=== PATIENT | male | born 1950 | race Caucasian/White ===

== ENCOUNTER 2022-01-23 15:01 | Outpatient (CLI) | payer MEDICARE, OTHER, SELFPAY ==
[2022-01-23 16:32] LABS: Absolute Lymphocyte Count 1.64 X10^3/uL (0.83-4.51); Absolute Neutrophil Count 7.8 X10^3/uL (2.0-7.7); Basophil# 0.05 X10^3/uL; Basophil% 0.5 % (0-1); Eosinophil# 0.15 X10^3/uL; Eosinophils% 1.4 % (0-5); Hematocrit 43.3 % (40-54); Hemoglobin 14.7 g/dL (13.0-16.5); Lymphocyte # 1.64 X10^3/ul (0.83-4.51); Lymphocyte % 15.8 % (19-41); Mean Corp Hgb Conc 33.9 g/dL (32-36); Mean Corpuscular Hgb 31.2 pg (27.0-32.0); Mean Corpuscular Volume 91.9 fL (80-94); Mean Platelet Vol. 9.3 fl (6.2-12.0); Monocyte# 0.74 X10^3/uL; Monocyte% 7.1 % (0-10); NRBC Flagged by Analyzer 0 % (0-5); Neutrophil # 7.79 X10^3/uL (2.7-7.7); Neutrophil % 74.8 % (47-70); Platelet Count 195 K/mm3 (150-450); RBC Distribution Width CV 13.1 % (11.6-14.6); RBC Distribution Width SD 44.7 fl (35.1-43.9); Red Blood Count 4.71 M/mm3 (4.6-6.2); White Blood Count 10.4 K/mm3 (4.4-11.0)
[2022-01-23 16:48] LABS: Vitamin D,25 Hydroxy 99.8 ng/mL
[2022-01-23 16:52] LABS: ALB/GLOB Ratio 0.9 RATIO (0.9-2.4); AST(SGOT) 17 U/L (15-37); Alanine Aminotransfer ALT/SGPT 33 U/L (16-61); Albumin, Serum 3.6 g/dL (3.2-5.0); Alkaline Phosphatase 132 U/L (45-117); Anion Gap 7 (5-15); BUN 26 mg/dL (7-18); Calcium,Total 9.5 mg/dL (8.5-10.1); Chloride 107 mmol/L (98-107); Cholesterol 198 mg/dL (200); Creatinine, Serum 1.37 mg/dL (0.70-1.30); EST Glomerular Filtration Rate 54 mL/min (>60); Est Glom Filt Rate - Afr Amer 65 mL/min (>60); Globulin 3.8 g/dL (2.2-4.2); Glucose 99 mg/dL (74-106); High Density Lipoprotein 43 mg/dL; Potassium 4.3 mmol/L (3.5-5.1); Protein, Total 7.4 g/dL (6.4-8.2); Sodium Level 142 mmol/L (136-145); Triglycerides 120 mg/dL; Very Low Density Lipoprotein 24 mg/dL (5-40)
[2022-01-23 16:55] LABS: Hemoglobin A1c 6.2 % (3.8-5.6)
[2022-01-23 17:02] LABS: Microalbumin:Creatinine Ratio 33.7 mg/g CRE (<30 mg/g CRE)
== END 2022-01-23 23:59 | disposition home or self-care (01) ==
LOC: BIMLAB 15:02
PROVIDERS: PCP Internal Medicine; Referring Provider Internal Medicine; Visit Provider Internal Medicine
DX: E11.9 Type 2 diabetes mellitus without complications (principal); G35 Multiple sclerosis; I10 Essential (primary) hypertension
CPT/HCPCS: 36415; 80053; 80061; 82043; 82306; 82570; 83036; 85025

== ENCOUNTER → 2022-02-07 | Outpatient (CLI) | payer MEDICARE, OTHER, SELFPAY ==
[2022-02-07 12:12] LABS: PSA,Total - Annual Screen 1.85 ng/mL (0.00-4.00)
== END | disposition home or self-care (01) ==
LOC: LAB 10:46
PROVIDERS: PCP Internal Medicine; Referring Provider Urology; Visit Provider Urology
DX: Z12.5 Encounter for screening for malignant neoplasm of prostate (principal)
CPT/HCPCS: 36415; 84153; G0103

== ENCOUNTER → 2022-02-08 | Outpatient (CLI) | payer MEDICARE, OTHER, SELFPAY | END | disposition home or self-care (01) | LOC: SL 22:36 | PROVIDERS: PCP Internal Medicine; Referring Provider Psychiatry & Neurology Sleep Medicine; Visit Provider Psychiatry & Neurology Sleep Medicine | DX: G47.33 Obstructive sleep apnea (adult) (pediatric) (principal); Z99.89 Dependence on other enabling machines and devices | CPT/HCPCS: 95811 ==

== ENCOUNTER → 2022-03-21 | Outpatient (CLI) | payer MEDICARE, OTHER, SELFPAY | END | disposition home or self-care (01) | LOC: SL 15:03 | PROVIDERS: PCP Internal Medicine; Visit Provider Psychiatry & Neurology Sleep Medicine | DX: G47.33 Obstructive sleep apnea (adult) (pediatric) (principal) ==

== ENCOUNTER → 2022-05-02 | Outpatient (CLI) | payer MEDICARE, OTHER, SELFPAY ==
--- NOTE | 2022-05-02 11:52 | RAD_ITS ---
EXAM: XR LEFT SHOULDER COMPLETE, 2 OR MORE VIEWS CLINICAL INDICATION: Left shoulder pain TECHNIQUE: Two or more views of the left shoulder. This report was created using [employer] report generation technology. COMPARISON: None. FINDINGS: BONES/JOINTS: There is elevation of the humeral head in the glenoid fossa. There are orthopedic anchors seen within the humeral head. The humeral head is elevated in the glenoid fossa which can be seen in chronic rotator cuff injury. No acute fracture. No subluxation. Normal alignment. Preservation of the joint space. No sclerotic or destructive changes observed. SOFT TISSUES: Unremarkable. No soft tissue swelling or gas. No radiopaque foreign body. RAD/Shoulder min 2 Views IMPRESSION: No acute osseous abnormalities. Electronically Signed: Armando Angelo MD at 17:56 EST ,
== END | disposition home or self-care (01) ==
PROVIDERS: PCP Internal Medicine; Visit Provider Internal Medicine
DX: M25.512 Pain in left shoulder (principal)
CPT/HCPCS: 73030

== ENCOUNTER 2022-07-04 13:30 | Outpatient (RCR) | payer MEDICARE, SELFPAY ==
--- NOTE | 2022-05-09 13:20 | HP.PTEVAL_ITS ---
Patient's Visit Information KAROL DRUMMOND is a 72 year old M referred to Physical Therapy by Dr. Guy Murrieta MD with a diagnosis of Left Shoulder Impingement. Date of Evaluation: 05/09/22 Physical Therapist: Alondra Cannon DPT - Visit Plan Frequency: 2x /Week Duration: 4 Weeks Plan: Postural correction- scapular strength/stabilization and ROM. HEP Given IE: Phase 3 RTC Ex, Wall Wash Flexion/Abd, Postural education - Subjective Patient reports that he has impingement in his left shoulder- insidious onset. He is guessing its from sleeping on it funny- its been bothering him for about 6 weeks. He has had RTC repairs around 1999 in both sides. Has had issues on/off with his shoulders since then. He has had therapy on his shoulders before. Workout at [employer]- he just started and has home equip- arm ex with the exception of dips- he does low load and 12 reps. He wants to go 2x a week. Should hurts on/off- he has to move it into a specific position and he can't push it past 90 degrees. He feels the bone moving in the joint. Has had x-ray which did not show a lot of OA. Right hand dominate. Agg: movement, putting on his jacket. Worst: 7/10. Best: 0/10 Eases: in the right position or not moving overhead. Describes the pain as sharp and shooting the pain is right in the joint- no radiating pain- no neck pain, WHITEHEAD, or blurred vision. No N/T in the hand that is new. Sleep: not disturbed. Does not limit him from doing anything but if effects putting his jacket on. Does like to play guitar. He is not very active but he is trying to get back into activity. PMHx/Meds: No changes since 04/26/22 from PCP. - Objective Posture: mild guarding of the left UE. Palpation: not tender to touch. ROM: Cervical: WNL does report increased pull with SB to the right, Shoulder: Flexion: 180 degrees with painful arc, Abd: 180 degrees with painful arc. Extn: WNL, IR: to belt line, ER: 40 degrees with pain at end range Elbow/Wrist/Hand: WFL Strength: Scap: poor Shoulder Isometric: 4/5 in a neutral position, Through half ROM: flexion/abd: 4-/5 with discomfort Elbow:4/5, Advertising Strategist: equal - Special Tests L Shoulder Supine Impingement Test - RC Tear: Positive L Shoulder Lift Off Test - Subscapular Tear: Positive L Shoulder Drop Sign - IS Test: Positive L Shoulder Empty Can - SS: Positive L Shoulder Belly Press - SupScap: Positive L Shoulder Neer - Impingement: Positive L Shoulder Olivo Dre - Impingement: Positive - Balance/Special Test Scores Quick DASH Score: 22.7250 - Goals Goal 1:: Patient will be I with HEP and progression Goal Time Frame: 4-6 Weeks Goal 2:: Patient will demo full AROM of the left shoulder Goal Time Frame: 4-6 Weeks Goal 3:: Patient will maintain proper posture t/o tx session to demo increased scap s/s Goal Time Frame: 4-6 Weeks Goal 4:: Patient will report 80% improvement Goal Time Frame: 4-6 Weeks - Rehabilitation Potential Physical Therapy Diagnosis: Patient presents with hypomobility- he has decreased UE and scapular strength/stabilization, ROM and muscular endurance leading to poor posture and increased pain with ADL's. Rehabilitation Potential: Good - Anticipated Interventions Patient/Client Instruction: Educate patient on: Benefits of Fitness Program Therapeutic Exercise to Include: Strength training, Endurance training, Coordination, Agility training, Body mechanics, Postural training, Flexibilty training, Passive ROM, Active ROM, Scapular Strength/Stabilization For the Purpose of:: To improve muscle performance and motor function TENS: Yes Cryotherapy (ice pack, ice massage): Yes Thermo therapy (hot pack): Yes Ultrasound (thermal/non thermal): No Thank you for the opportunity to evaluate your patient. For Medicare and Medicare HMO plans, please review the plan of care and approve it. It will need to be FAXED BACK to us at [phone] for Medicare purposes. For Medicare only, by signing this I certify the plan of care. Please let me know if there are questions or concerns regarding this plan of care. Physician Signature: Date:
--- NOTE | 2022-06-02 11:21 | HP.PTREVAL ---
Dr. Guy Murrieta MD, It has been my pleasure to treat KAROL DRUMMOND over the last 8 visits for Left Shoulder Impingement. Please see the progress note below for an update on the physical therapy plan of care! Subjective: Patient reports that its better but not great- He still has pain and decreased ROM in abduction/flexion. Objective/Function: Posture: mild guarding of the left UE. Palpation: not tender to touch. ROM: Cervical: WNL does report increased pull with SB to the right, Shoulder: Flexion: 180 degrees with painful arc, Abd: 180 degrees with painful arc. Extn: WNL, IR: to belt line, ER: 40 degrees with pain at end range Elbow/Wrist/Hand: WFL Strength: Scap: fair Shoulder Isometric: 4/5 in a neutral position, Through half ROM: flexion/abd: 4-/5 with discomfort Elbow:4/5, Insulation Extruder Operator: equal. - Special Tests. L Shoulder Supine Impingement Test - RC Tear: Positive. L Shoulder Lift Off Test - Subscapular Tear: Positive. L Shoulder Drop Sign - IS Test: Positive. L Shoulder Empty Can - SS: Positive. L Shoulder Belly Press - SupScap: Positive. L Shoulder Neer - Impingement: Positive. L Shoulder Olivo Dre - Impingement: Positive Plan Plan: 06/02/22: Continue with POC 2x a week for 4 weeks. Postural correction- scapular strength/stabilization and ROM. HEP Given IE: Phase 3 RTC Ex, Wall Wash Flexion/Abd, Postural education Balance/Gait/Functional tests - Balance/Special Test Scores Quick DASH Score: 11.3625 Goals Goal 1:: Patient will be I with HEP and progression Goal Time Frame: 4-6 Weeks Goal 2:: Patient will demo full AROM of the left shoulder Goal Time Frame: 4-6 Weeks Goal 3:: Patient will maintain proper posture t/o tx session to demo increased scap s/s Goal Time Frame: 4-6 Weeks Goal 4:: Patient will report 80% improvement Goal Time Frame: 4-6 Weeks Anticipated Interventions Patient/Client Instruction: Educate patient on: Benefits of Fitness Program Therapeutic Exercise to Include: Strength training, Endurance training, Coordination, Agility training, Body mechanics, Postural training, Flexibilty training, Passive ROM, Active ROM, Scapular Strength/Stabilization For the Purpose of:: To improve muscle performance and motor function TENS: Yes Cryotherapy (ice pack, ice massage): Yes Thermo therapy (hot pack): Yes Ultrasound (thermal/non thermal): No Please do not hesitate to contact me at [phone] by phone or if you have questions or concerns regarding this new plan of care! Sincerely, STEVEN ColeT
--- NOTE | 2022-07-04 13:55 | HP.PTDCSUM_ITS ---
It has been my pleasure to treat KAROL DRUMMOND referred by Dr. Guy Murrieta MD, with the diagnosis of Left Shoulder Impingement for a total of 14 visit(s). Discharge Date: Please see the following information for a summary of their discharge status. Subjective: Patient reports that the shoulder is okay but not great. He feels that the exercise has not changed and he has a delma at home and the [employer]. The pain is right across the outside of the AC joint and its a sharp pain- kicks in right about when it just stops- doesn't feel like weakness just gets stuck. He has not had an injection- but he does go back to the [facility] in a few weeks. Left Shoulder Pain Intensity (Out of 10): 2 % Improvement: 65 Objective/Function: Posture: mild guarding of the left UE. Palpation: not tender to touch. ROM: Cervical: WNL does report increased pull with SB to the right, Shoulder: Flexion: 180 degrees with painful arc, Abd: 180 degrees with painful arc. Extn: WNL, IR: to belt line, ER: 40 degrees with pain at end range Elbow/Wrist/Hand: WFL Strength: Scap: poor Shoulder Isometric: 4/5 in a neutral position, Through half ROM: flexion/abd: 4-/5 with discomfort Elbow:4/5, Crabbing Machine Operator: equal. - Special Tests. L Shoulder Supine Impingement Test - RC Tear: Positive. L Shoulder Lift Off Test - Subscapular Tear: Positive. L Shoulder Drop Sign - IS Test: Positive. L Shoulder Empty Can - SS: Positive. L Shoulder Belly Press - SupScap: Positive. L Shoulder Neer - Impingement: Positive. L Shoulder Olivo Dre - Impingement: Positive Goal 1:: Patient will be I with HEP and progression Goal 2:: Patient will demo full AROM of the left shoulder Goal 3:: Patient will maintain proper posture t/o tx session to demo increased scap s/s Goal 4:: Patient will report 80% improvement Plan: Discharge to [facility] If there are questions or concerns regarding this patient's physical therapy, please feel free to call me at [phone]. Thank you for the referral of this patient. Sincerely, Alondra Cannon, [facility] Balance/Gait/Functional tests - Balance/Special Test Scores Quick DASH Score: 11.3623
== END 2022-07-04 15:21 | disposition home or self-care (01) ==
LOC: PT 13:30
PROVIDERS: PCP Internal Medicine; Referring Provider Internal Medicine; Visit Provider Internal Medicine
DX: M25.512 Pain in left shoulder (principal)
CPT/HCPCS: 97110; 97162; 97164

== ENCOUNTER 2022-08-18 08:13 | Day surgery (SDC) | payer MEDICARE, SELFPAY ==
[2022-08-18] MEDS: Lactated Ringers 1,000 ML 15 ML IV (08:54)
[2022-08-18 08:55] VITALS: BP 117/74; PULSE 54; RESP 18; TEMP 36.2; O2SAT 96; BMI 35.7
[2022-08-18 09:05] LABS: Bedside Glucose 153 mg/dL (74-106)
--- NOTE | 2022-08-18 09:30 | H&P.OPEN ---
HPI - General HPI Narrative KAROL DRUMMOND, is a 72 M who presents for surveillance colonoscopy. He reports his last colonoscopy was 5 years ago. He does have history of colon polyps. He denies any abdominal pain or blood in the stool. He denies family history of colon cancer. [facility] Medical History (Updated 08/18/22 @ 09:[address] Sid Acevedo MD) Alcohol use Ambulates with cane Anxiety Arthritis Back pain BiPAP (biphasic positive airway pressure) dependence Colon cancer screening Dietary restriction Health care maintenance Heartburn High cholesterol High triglycerides History of diverticulitis History of edema History of steroid therapy History of stress test Hypertension Insulin dependent diabetes mellitus Left shoulder pain Loss of hearing Multiple sclerosis Neurogenic bladder Neuropathy Non-smoker Prostate disease Self-catheterizes urinary bladder Tinnitus Type 2 diabetes mellitus Wears glasses Home Medications alpha lipoic acid 600 mg tablet 1,200 mg PO DAILY 01/23/22 [History Last Taken Unknown] atorvastatin 40 mg tablet 40 mg PO QHS 01/23/22 [History Last Taken Unknown] cholecalciferol (vitamin D3) 1,250 mcg (50,000 unit) capsule 1,250 mcg PO MO 01/23/22 [History Last Taken Unknown] gabapentin 600 mg tablet 600 mg PO QHS 01/23/22 [History Last Taken Unknown] lisinopril 10 mg-hydrochlorothiazide 12.5 mg tablet 1 tab PO DAILY 01/23/22 [History Last Taken 08/18/22] modafinil 100 mg tablet 100 mg PO DAILY PRN BP 01/23/22 [History Last Taken Unknown] naltrexone 4.5 mg PO QHS MS 01/23/22 [History Last Taken Unknown] oxybutynin chloride 15 mg tablet,extended release 24 hr 15 mg PO DAILY 01/23/22 [History Last Taken Unknown] vitamins A,C,B-opmw-gdkyhk 4,296 mcg-226 mg-90 mg capsule (PreserVision AREDS) 1 cap PO DAILY 01/23/22 [History Last Taken Unknown] blood sugar diagnostic (OneTouch Ultra Test strips) #100 ea 02/16/22 [Rx Last Taken Unknown] Grandin Choice Comfort EZ insulin pen needles #100 ea 04/13/22 [Rx Last Taken Unknown] dapagliflozin 10 mg tablet (Farxiga) 10 mg PO DAILY #90 tabs 07/17/22 [Rx Last Taken Unknown] dulaglutide 3 mg/0.5 mL subcutaneous pen injector (Trulicity) 3 mg (0.5 mL) subcut QWEEK 3 months #6.5 mL 07/28/22 [Rx Last Taken Unknown] insulin glargine 100 unit/mL (3 mL) subcutaneous pen (Basaglar KwikPen U-100 Insulin) 44 unit (0.44 mL) subcut QPM 3 months #39.6 mL 08/04/22 [Rx Last Taken Unknown] Allergy/AdvReac Type Severity Reaction Status Date / Time No Known Allergies Allergy Verified 08/18/22 08:53 Family History Other Cancer Diabetes Heart disease Surgical History History of colonoscopy History of rotator cuff surgery Social History Smoking Status: Never smoker alcohol intake: current alcohol intake frequency: holidays/special occasions only substance use type: former substance user, marijuana and crack/cocaine what type of physical activity do you participate in: aerobics frequency: 3-4 times per week duration: 15-30 minutes/day Past Medical/Surgical History Planned Operation Planned Operative Procedure/s: CSCOPE OA Previous Hospitalizations/Surgeries HX Hospitalizations: No Any Problems With Anesthesia: No You/Your Family Experience Fever (Hyperthermia) With Anes: No Cholinesterase deficiency: No Cardiovascular Hx Hypertension: Yes (CONTROLLED WITH MED) Respiratory Hx Sleep Apnea: Yes CPAP: No BIPAP: Yes Hx Respiratory Tract Infection/Cold (presently): No Result (for STOP score): Positive Smoking Status: Never smoker Neurological Does patient have nerve stimulator: No Reproduction : No Miscellaneous Recent Exposure to Contagious Disease: No Allergies No Known Allergies Allergy (Verified 08/18/22 08:53) Discharge Is Pt Admitted From a Senior Care, or a Correction: No After D/C, Where Do you Plan to Go: Return Home Vital Signs Vital Signs Vital Signs: 08/18/22 08:55 08/18/22 08:55 Temperature 97.1 F L Temperature Source Temporal Pulse Rate 54 L Respiratory Rate 18 Respiratory Pattern Normal Blood Pressure 117/74 Blood Pressure Mean 88 Blood Pressure Source Monitor Blood Pressure Position Semi-Fowlers Blood Pressure Location Right Arm Pulse Ox 96 Oxygen Delivery Method Room Air Weight Weight: 249 lb Body Mass Index (BMI) 35.7 Physical Exam Const alert and oriented x3 HEENT normocephalic Eyes PERRL Resp normal respiratory effort and normal air movement Cardio regular rate and regular rhythm GI soft to palpation, non-tender and non-distended Extremity normal to inspection Assessment & Plan Assessment/Plan (1) History of colon polyps: PLAN: I explained endoscopy in detail to the patient. I explained the risks including but not limited to stroke or heart attack with anesthesia, perforation of the GI tract, bleeding, infection. I explained that any of these could necessitate further emergency surgery. The patient understands and all questions were answered sufficiently. The patient wishes to proceed with procedure. Sid Acevedo MD Pager: [facility] [address] [place] [address] [address] [place] [address] Office: Surgery Risks - Colonoscopy Risks Include but are not Limited To: Risks include but are not limited to: Bleeding, perforation requiring further surgery, inability to complete colonoscopy requiring barium enema.
[2022-08-18 10:05] VITALS: BP 117/74; BP 128/78; PULSE 72; RESP 16; TEMP 36.2; O2SAT 94
[2022-08-18 10:10] VITALS: BP 102/67; BP 117/74; PULSE 72; RESP 16; O2SAT 92
[2022-08-18 10:15] VITALS: BP 104/66; BP 117/74; PULSE 78; RESP 16; O2SAT 97
[2022-08-18 10:20] VITALS: BP 117/74; BP 91/65; PULSE 84; RESP 16; TEMP 36.3; O2SAT 95
--- NOTE | 2022-08-18 10:33 | OP.COLON_ITS ---
Patient Name: Dominic Paulson Procedure Date: 08/18/2022 9:39 AM Date of : 1950 Age: 72 Procedure: Colonoscopy Indications: High risk colon cancer surveillance: Personal history of colonic polyps Providers: Sid Acevedo MD Referring MD: Sid Acevedo MD Medicines: Monitored Anesthesia Care Patient Profile: This is a 72 year old male. Refer to note in patient chart for documentation of history and physical. Last Colonoscopy: 5 years ago. Complications: No immediate complications. Procedure: Pre-Anesthesia Assessment: - Prior to the procedure, a History and Physical was performed, and patient medications and allergies were reviewed. The patient's tolerance of previous anesthesia was also reviewed. The risks and benefits of the procedure and the sedation options and risks were discussed with the patient. All questions were answered, and informed consent was obtained. Prior Anticoagulants: The patient has taken no previous anticoagulant or antiplatelet agents. After reviewing the risks and benefits, the patient was deemed in satisfactory condition to undergo the procedure. After I obtained informed consent, the scope was passed under direct vision. Throughout the procedure, the patient's blood pressure, pulse, and oxygen saturations were monitored continuously. The pediatric colonoscope was introduced through the anus and advanced to the cecum, identified by appendiceal orifice and ileocecal valve. The colonoscopy was performed without difficulty. The patient tolerated the procedure well. The quality of the bowel preparation was good. Scope In: 9:47:44 AM Scope Withdrawal Time 0 hours 4 minutes 43 seconds Scope Out: 9:59:51 AM Total Procedure Duration Time 0 hours 12 minutes 7 seconds Findings: The entire examined colon appeared normal on direct and retroflexion views. Impression: - The entire examined colon is normal on direct and retroflexion views. - No specimens collected. Recommendation: - Discharge patient to home. - Resume previous diet. - Continue present medications. - Repeat colonoscopy is not recommended due to current age (66 years or older) for screening purposes. Procedure Code(s): --- Professional --- 43113, Colonoscopy, flexible; diagnostic, including collection of specimen(s) by brushing or washing, when performed (separate procedure) Diagnosis Code(s): --- Professional --- Z86.010, Personal history of colonic polyps CPT copyright 2017 [employer]. All rights reserved. The codes documented in this report are preliminary and upon welder operator review may be revised to meet current compliance requirements. Sid Acevedo MD 08/18/2022 10:32:40 AM This report has been signed electronically. Number of Addenda: 0 Note Initiated On: 08/18/2022 9:39 AM
--- NOTE | 2022-08-18 10:33 | OP.CCLET_ITS ---
08/18/2022 Guy Murrieta MD [address] [place] [address] [place] [address] Re : Colonoscopy procedure for Wilytorres Khurram Dear Dr. Murrieta This procedure was performed on Thursday, August 18, 2022. My impressions and recommendations are as follows: Impressions : - The entire examined colon is normal on direct and retroflexion views. - No specimens collected. Recommendations : - Discharge patient to home. - Resume previous diet. - Continue present medications. - Repeat colonoscopy is not recommended due to current age (66 years or older) for screening purposes. My findings are described in the full procedure note, which is enclosed. If I can be of further assistance, please feel free to contact me at Doctor phone number(s): , Work: . Sincerely, Sid Acevedo MD 08/18/2022 10:32:40 AM This report has been signed electronically.
[2022-08-18 10:47] VITALS: BP 117/74
== END 2022-08-18 10:55 | disposition home or self-care (01) ==
LOC: EN 08:15 → AC 08:18
PROVIDERS: PCP Internal Medicine; Referring Provider Surgery; Visit Provider Surgery
PROC: 0DJD8ZZ Inspection of Lower Intestinal Tract, Via Natural or Artificial Opening Endoscopic (ICD-10-PCS; CPT 45378; principal; 2022-08-18 09:25)
DX: Z12.11 Encounter for screening for malignant neoplasm of colon (principal); G35 Multiple sclerosis; E11.40 Type 2 diabetes mellitus with diabetic neuropathy, unspecified; Z79.4 Long term (current) use of insulin; E78.00 Pure hypercholesterolemia, unspecified; I10 Essential (primary) hypertension; N31.9 Neuromuscular dysfunction of bladder, unspecified; G47.30 Sleep apnea, unspecified; Z79.899 Other long term (current) drug therapy; Z86.010 Personal history of colon polyps
CPT/HCPCS: 45378; 82962; J7120; J2405

== ENCOUNTER → 2022-11-08 | Outpatient (CLI) | payer MEDICARE, SELFPAY ==
[2022-11-08 13:48] LABS: Anion Gap 7 (5-15); BUN 18 mg/dL (7-18); BUN/Creat Ratio 12.4 RATIO (10-20); Chloride 107 mmol/L (98-107); Creatinine, Serum 1.45 mg/dL (0.70-1.30); EST Glomerular Filtration Rate 50 mL/min (>60); Est Glom Filt Rate - Afr Amer 61 mL/min (>60); Glucose 115 mg/dL (74-106); Sodium Level 140 mmol/L (136-145)
== END | disposition home or self-care (01) ==
LOC: BIMLAB 11:18
PROVIDERS: PCP Internal Medicine; Referring Provider Internal Medicine; Visit Provider Internal Medicine
DX: E11.9 Type 2 diabetes mellitus without complications (principal)
CPT/HCPCS: 36415; 80048

== ENCOUNTER → 2023-02-12 | Outpatient (CLI) | payer MEDICARE, SELFPAY ==
[2023-02-12 16:11] LABS: Absolute Lymphocyte Count 1.94 X10^3/uL (0.83-4.51); Absolute Neutrophil Count 7.1 X10^3/uL (2.0-7.7); Basophil# 0.06 X10^3/uL; Basophil% 0.6 % (0-1); Eosinophil# 0.23 X10^3/uL; Eosinophils% 2.3 % (0-5); Hematocrit 45.7 % (40-54); Hemoglobin 15.1 g/dL (13.0-16.5); Lymphocyte # 1.94 X10^3/ul (0.83-4.51); Lymphocyte % 19.1 % (19-41); Mean Corpuscular Hgb 30.4 pg (27.0-32.0); Mean Platelet Vol. 9.7 fl (6.2-12.0); Monocyte% 7.9 % (0-10); NRBC Flagged by Analyzer 0 % (0-5); Neutrophil % 69.7 % (47-70); Platelet Count 203 K/mm3 (150-450); RBC Distribution Width CV 12.9 % (11.6-14.6); RBC Distribution Width SD 43.2 fl (35.1-43.9); Red Blood Count 4.97 M/mm3 (4.6-6.2); White Blood Count 10.2 K/mm3 (4.4-11.0)
[2023-02-12 17:10] LABS: ALB/GLOB Ratio 0.9 RATIO (0.9-2.4); AST(SGOT) 9 U/L (15-37); Alanine Aminotransfer ALT/SGPT 32 U/L (16-61); Albumin, Serum 3.5 g/dL (3.2-5.0); Alkaline Phosphatase 131 U/L (45-117); Anion Gap 4 (5-15); BUN 23 mg/dL (7-18); Calcium,Total 8.6 mg/dL (8.5-10.1); Chloride 111 mmol/L (98-107); Cholesterol 165 mg/dL (200); Creatinine, Serum 1.35 mg/dL (0.70-1.30); EST Glomerular Filtration Rate 55 mL/min (>60); Est Glom Filt Rate - Afr Amer 66 mL/min (>60); Globulin 3.7 g/dL (2.2-4.2); Glucose 141 mg/dL (74-106); High Density Lipoprotein 45 mg/dL; PSA,Total - Annual Screen 1.37 ng/mL (0.00-4.00); Protein, Total 7.2 g/dL (6.4-8.2); Sodium Level 138 mmol/L (136-145); Triglycerides 103 mg/dL; Very Low Density Lipoprotein 21 mg/dL (5-40)
== END | disposition home or self-care (01) ==
LOC: BIMLAB 13:41 → LAB 13:41
PROVIDERS: PCP Internal Medicine; Referring Provider Internal Medicine; Visit Provider Internal Medicine
DX: E11.69 Type 2 diabetes mellitus with other specified complication (principal); Z79.4 Long term (current) use of insulin; Z12.5 Encounter for screening for malignant neoplasm of prostate
CPT/HCPCS: 36415; 80053; 80061; 84153; 85025; G0103

== ENCOUNTER 2023-04-03 13:25 | Emergency (ER) | payer MEDICARE, SELFPAY ==
[2023-04-03 13:26] VITALS: BP 108/96; PULSE 57; RESP 18; TEMP 36.4; O2SAT 95; BMI 36.0
--- NOTE | 2023-04-03 13:36 | EDS_ITS ---
HPI History of Present Illness Chief Complaint: Fall Narrative Narrative: 73-year-old male past medical history of hypertension, diabetes, bilateral rotator cuff repair, presents with right knee pain and inability to ambulate status post fall. He states he came in to his home, and the linoleum was wet. His feet went up in the air and he fell backwards, but onto his right knee as well. 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 While he may have hit his head, he denies loss of consciousness, headache, neck pain, or other injury. He crawled along the floor, got his telephone and called EMS because of his right knee pain. He complains of pain above his right patella. He states he thought he broke his kneecap initially. Since then, he has been unable to bear weight or ambulate. [facility] Medical History Alcohol use Ambulates with cane Anxiety Arthritis Back pain BiPAP (biphasic positive airway pressure) dependence Colon cancer screening Dietary restriction Flu vaccine need Health care maintenance Heartburn High cholesterol High triglycerides History of diverticulitis History of edema History of steroid therapy History of stress test Hyperlipidemia Hypertension Insulin dependent diabetes mellitus Left shoulder pain Loss of hearing Multiple sclerosis Neurogenic bladder Neuropathy Non-smoker Prostate disease Self-catheterizes urinary bladder Tinnitus Type 2 diabetes mellitus Wears glasses Home Medications alpha lipoic acid 600 mg tablet 1,200 mg PO DAILY 01/23/22 [History Last Taken Unknown] modafinil 100 mg tablet 100 mg PO DAILY PRN BP 01/23/22 [History Last Taken Unknown] naltrexone 4.5 mg PO QHS MS 01/23/22 [History Last Taken Unknown] oxybutynin chloride 15 mg tablet,extended release 24 hr 15 mg PO DAILY 01/23/22 [History Last Taken Unknown] vitamins A,C,J-djrh-yowjes 4,296 mcg-226 mg-90 mg capsule (PreserVision AREDS) 1 cap PO DAILY 01/23/22 [History Last Taken Unknown] [place] Choice Comfort EZ insulin pen needles #100 ea 04/13/22 [Rx Last Taken Unknown] dulaglutide 3 mg/0.5 mL subcutaneous pen injector (Trulicity) 3 mg (0.5 mL) subcut QWEEK 3 months #6.5 mL 07/28/22 [Rx Last Taken Unknown] insulin glargine 100 unit/mL (3 mL) subcutaneous pen (Basaglar KwikPen U-100 Insulin) 44 unit (0.44 mL) subcut QPM 3 months #39.6 mL 08/04/22 [Rx Last Taken Unknown] atorvastatin 40 mg tablet 40 mg PO QHS #90 tabs 10/23/22 [Rx Last Taken Unknown] gabapentin 600 mg tablet 600 mg PO QHS #90 tabs 12/06/22 [Rx Last Taken Unknown] dapagliflozin propanediol 10 mg tablet (Farxiga) 10 mg PO DAILY #90 tabs 01/16/23 [Rx Last Taken Unknown] cholecalciferol (vitamin D3) 1,250 mcg (50,000 unit) capsule 1,250 mcg PO MO #14 caps 02/23/23 [Rx Last Taken Unknown] lisinopril 10 mg-hydrochlorothiazide 12.5 mg tablet 1 tab PO DAILY #90 tabs 02/23/23 [Rx Last Taken Unknown] blood sugar diagnostic (QWiPS Ultra Test strips) #100 ea 03/14/23 [Rx Last Taken Unknown] Allergy/AdvReac Type Severity Reaction Status Date / Time No Known Allergies Allergy Verified 04/03/23 13:25 Family History Other Cancer Diabetes Heart disease Surgical History History of colonoscopy History of rotator cuff surgery Social History Smoking Status: Never smoker alcohol intake: current alcohol intake frequency: holidays/special occasions only substance use type: former substance user, marijuana and crack/cocaine what type of physical activity do you participate in: aerobics frequency: 3-4 times per week duration: 15-30 minutes/day ROS ROS ED ROS Narrative Constitutional: No fever, no chills. HEENT: No sore throat. No neck pain. No loss of vision. No rhinorrhea. Cardiovascular: No chest pain. No palpitations. No pedal edema. Respiratory: No cough, no shortness of breath. Abdominal: No abdominal pain. No nausea. No vomiting. Genitourinary: No dysuria. No hematuria. Musculoskeletal: No myalgias. Right knee pain?injury. Neurologic: No headaches. No dizziness. No lightheadedness. No loss of consciousness. Skin: No rash. No change in color. Psychiatric: No depression. No anxiety. EXAM Physical Exam Narrative Exam Narrative: Afebrile. Vital signs noted. CS 15. ABCs intact. HEENT: Normocephalic. Atraumatic. PERRL, EOMI. Neck soft and supple. No point tenderness or step off. Cardiovascular: Regular rate and rhythm. No murmurs, rubs, or gallops appreciated. Respiratory: No tachypnea. Lungs clear to auscultation bilaterally. Gastrointestinal: Abdomen soft, nontender, with normoactive bowel sounds. No rebound or guarding. Neurological: Awake. Alert. Nonfocal, nonlateralizing. Skin: No rash. Normal color. No pallor. Musculoskeletal: No pedal edema. Extension and flexion mechanism of right knee appears intact but range of motion is limited secondary to pain. He is unable to pick his right leg directly up off the bed. There seems to be a palpable deficit in the area of the quadriceps patellar tendon, just above his kneecap. No ecchymosis or erythema noted. Const Vital Signs: 04/03/23 13:26 04/03/23 13:29 Temperature 97.6 F L Temperature Source Oral Pulse Rate 57 L Respiratory Rate 18 Respiratory Effort Normal Non-Labored Respiratory Depth Normal Respiratory Pattern Normal Blood Pressure 108/96 H Blood Pressure Mean 100 Pulse Ox 95 Oxygen Delivery Method Room Air Room Air MDM MDM MDM Narrative Medical decision making narrative: Concern is for quadriceps/patellar tendon rupture versus patellar fracture versus knee sprain. Patient was given 1 Percocet tablet here in the emergency department and x-rays obtained of the right knee and 4 views. On my individual interpretation of his right knee x-rays, there is no evidence of an acute fracture. I reviewed the radiology report which confirms my independent inter pretation. I will discuss patient with the on-call orthopedist, Dr. Shah. While he may be able to be placed in a knee immobilizer and give her a walker, patient is concerned about returning home and having this taken care of as an outpatient as he lives in a mobile home and there are stairs going up and down which she may have difficulty maneuvering. I did discuss the patient with orthopedics who stated that the patient can be weightbearing as tolerated with his knee immobilizer in place. Patient declined any further narcotic pain medication stating he would prefer to take qced-kok-lhlnyhr medications such as Tylenol or ibuprofen. He has a walker and a rollator at home. He is acceptable to being discharged. I discussed the patient with orthopedics who will see him tomorrow for possible surgery on Sunday. Patient was made aware of this plan. He is to call the office today for an appointment tomorrow. Return instructions to the emergency department were reviewed. Disposition is discharged home in stable condition. History & Record Review Discussion w/independent historian: Patient Additional record(s) reviewed:: Prior outpatient record Radiography Diagnostic Testing: Clinical Impression(s) from Imaging Studies Knee X-Ray 04/03/23 13:40 IMPRESSION: Degenerative arthrosis. Electronically Signed: Oscar Garner MD at 14:05 EST , Discharge Plan Triage Chief Complaint: Fall ED Provider: Josesito Turner Dx/Rx/DC Orders Clinical Impression: Fall, Rupture of kneecap tendon Instructions: ED Mechanical Fall, ED Quadriceps Tendon Rupture Prescriptions: No Action naltrexone 4.5 mg PO QHS Rx Instructions: 4.5 oxybutynin chloride 15 mg tablet extended release 24hr 15 mg PO DAILY PreserVision AREDS 14320-226-200 [id number]-mn-upsg capsule 1 cap PO DAILY modafinil 100 mg tablet 100 mg PO DAILY PRN (Reason: BP) alpha lipoic acid 600 mg tablet 1,200 mg PO DAILY insulin glargine [Basaglar KwikPen U-100 Insulin] 100 unit/mL (3 mL) insulin pen 44 unit subcut QPM 90 Days Qty: 39.6 3RF (DME) [place] Choice Comfort EZ insulin pen needles 31G pen injector See Rx Instructions .Route .MEDSUPPLY Qty: 100 0RF Rx Instructions: Check blood glucose twice a day and as needed Trulicity 3 mg/0.5 mL pen injector 3 mg subcut QWEEK 90 Days Qty: 6.5 3RF atorvastatin 40 mg tablet 40 mg PO QHS Qty: 90 2RF gabapentin 600 mg tablet 600 mg PO QHS Qty: 90 1RF Farxiga 10 mg tablet 10 mg PO DAILY Qty: 90 3RF lisinopril-hydrochlorothiazide 10-12.5 mg tablet 1 tab PO DAILY Qty: 90 1RF cholecalciferol (vitamin D3) 1,250 mcg (50,000 unit) capsule 1,250 mcg PO MO Qty: 14 2RF (DME) OneTouch Ultra Test Strip See Rx Instructions .Route Qty: 100 3RF Rx Instructions: Check blood sugar twice a day and as needed. Primary Care Provider: Guy Murrieta Referrals: Guy Murrieta MD [Primary Care Provider] - Jason Shah DO [Med Staff - Active Staff] - 1 Day Activity Restrictions/Additional Instructions: Use your walker to help you ambulate. You may bear weight on your right leg as long as the knee immobilizer is in place. Continue ice and elevation at home. Follow-up with Dr. Shah tomorrow as you may need to have surgery on Sunday. Disposition Disposition: Home, Self Care Discharge Date/Time: 04/03/23 14:47
--- NOTE | 2023-04-03 13:40 | RAD_ITS ---
STUDY: X-RAY - RIGHT KNEE REASON FOR EXAM: Male, 73 years old. Trauma TECHNIQUE: 5 view(s) of the knee. COMPARISON: None. FINDINGS: Normal visualized distal femur. Normal visualized proximal tibia and fibula. Normal proximal tibiofibular articulation. There is mild degenerative arthrosis of the medial femorotibial compartment. Normal lateral femorotibial compartment. Normal patellofemoral articulation. The soft tissue structures are unremarkable. RAD/Knee 4 or More Views IMPRESSION: Degenerative arthrosis. Electronically Signed: Oscar Garner MD at 14:05 EST ,
[2023-04-03] MEDS: Oxycodone/Apap 5/325 Tablet PO (13:48)
== END 2023-04-03 14:47 | disposition home or self-care (01) ==
PROVIDERS: Emergency Provider Emergency Medicine; PCP Internal Medicine; Visit Provider Emergency Medicine
DX: S76.111A Strain of right quadriceps muscle, fascia and tendon, initial encounter (principal); E11.40 Type 2 diabetes mellitus with diabetic neuropathy, unspecified; W19.XXXA Unspecified fall, initial encounter
CPT/HCPCS: 73564; 99283

== ENCOUNTER → 2023-04-04 | Outpatient (CLI) | payer MEDICARE, SELFPAY ==
--- NOTE | 2023-04-04 14:33 | MRI_ITS ---
EXAM: MR RIGHT LOWER EXTREMITY WITHOUT INTRAVENOUS CONTRAST, KNEE CLINICAL INDICATION: pain TECHNIQUE: Multiplanar and multisequence MR images of the right knee without intravenous contrast. COMPARISON: 04/03/2023 FINDINGS: BONES/JOINTS: Small to moderate volume suprapatellar joint fluid. EXTENSOR MECHANISM: Quadriceps tendon is disrupted at its patellar attachment. The mildly retracted tendon is thickened. MEDIAL MENISCUS: Attenuation and surface irregularity involving the body segment/posterior horn of the medial meniscus is compatible with a meniscal tear. LATERAL MENISCUS: Unremarkable. MEDIAL CAPSULE/SUPPORTING STRUCTURES: Unremarkable. Intact. LATERAL CAPSULE/SUPPORTING STRUCTURES: Unremarkable. Lateral collateral ligamentous complex, inclusive of the popliteal tendon, are intact. ANTERIOR CRUCIATE LIGAMENT: Unremarkable. Intact. POSTERIOR CRUCIATE LIGAMENT: Unremarkable. Intact. MUSCLES: Unremarkable. CARTILAGE: Unremarkable. Intact. FLUID: Unremarkable. No joint effusion. OTHER SOFT TISSUES: Diffuse subcutaneous edema anteriorly and laterally. No organized fluid collections. MRI/Lower Ext Joint Only (Routine) IMPRESSION: 1. Disrupted quadriceps tendon. 2. Tearing involving the body segment and posterior horn of the medial meniscus. 3. Ezjto-sh-suwylhdd joint effusion without Martell''s cyst. Electronically Signed: Cali Morse MD at 19:05 EST ,
== END | disposition home or self-care (01) ==
LOC: MRI 14:25
PROVIDERS: PCP Internal Medicine; Referring Provider Orthopaedic Surgery; Visit Provider Orthopaedic Surgery
DX: S76.119A Strain of unspecified quadriceps muscle, fascia and tendon, initial encounter (principal)
CPT/HCPCS: 73721

== ENCOUNTER 2023-04-06 10:40 | Day surgery (SDC) | payer MEDICARE, SELFPAY ==
[2023-04-06] VITALS (10 sets, daily range): BP systolic 117–147; BP diastolic 61–108; PULSE 54–86; RESP 16; TEMP 35.9–36.7; O2SAT 92–99; BMI 35.1
[2023-04-06] MEDS: Lactated Ringers 1,000 ML 15 ML IV ×2 (11:25→15:06)
[2023-04-06 11:43] LABS: Bedside Glucose 154 mg/dL (74-106)
--- NOTE | 2023-04-06 12:25 | HP.PCM_ITS ---
History and Physical Date of Admission: 04/06/23 [facility] [address] [place] [address] OFFICE VISIT Date of Service: 04/04/23 MR#: [id number] Acct: [id number] Name: KAROL DRUMMOND Rep #: [id number] : 1950 Provider: Dr. Jason Shah DO Age/Sex: 73/M [place] [facility] [place] Status: Signed Intake Vital Signs 04/03/2313:26 04/03/2314:48 04/04/2313:08 Height 5 ft 10 in 5 ft 10 in 5 ft 10 in Intake Visit Reasons: RIGHT KNEE Chief Complaint: right knee injury Is patient in pain?: Yes (right knee) Pain scale (1-10): 3 Allergies No Known Allergies Allergy (Verified 04/04/23 13:09) Medications alpha lipoic acid 600 mg tablet 1,200 mg PO DAILY 01/23/22 [History Confirmed 02/12/23] modafinil 100 mg tablet 100 mg PO DAILY PRN BP 01/23/22 [History Confirmed 02/12/23] naltrexone 4.5 mg PO QHS MS 01/23/22 [History Confirmed 02/12/23] oxybutynin chloride 15 mg tablet,extended release 24 hr 15 mg PO DAILY 01/23/22 [History Confirmed 02/12/23] vitamins A,C,E-ihbq-jurlyk 4,296 mcg-226 mg-90 mg capsule (PreserVision AREDS) 1 cap PO DAILY 01/23/22 [History Confirmed 02/12/23] [place] Choice Comfort EZ insulin pen needles #100 ea 04/13/22 [Rx Confirmed 02/12/23] dulaglutide 3 mg/0.5 mL subcutaneous pen injector (Trulicity) 3 mg (0.5 mL) subcut QWEEK 3 months #6.5 mL 07/28/22 [Rx Confirmed 02/12/23] insulin glargine 100 unit/mL (3 mL) subcutaneous pen (Basaglar KwikPen U-100 Insulin) 44 unit (0.44 mL) subcut QPM 3 months #39.6 mL 08/04/22 [Rx Confirmed 02/12/23] atorvastatin 40 mg tablet 40 mg PO QHS #90 tabs 10/23/22 [Rx Confirmed 02/12/23] gabapentin 600 mg tablet 600 mg PO QHS #90 tabs 12/06/22 [Rx Confirmed 02/12/23] dapagliflozin propanediol 10 mg tablet (Farxiga) 10 mg PO DAILY #90 tabs 01/16/23 [Rx Confirmed 02/12/23] cholecalciferol (vitamin D3) 1,250 mcg (50,000 unit) capsule 1,250 mcg PO MO #14 caps 02/23/23 [Rx] lisinopril 10 mg-hydrochlorothiazide 12.5 mg tablet 1 tab PO DAILY #90 tabs 02/23/23 [Rx] blood sugar diagnostic ([place] Ultra Test strips) #100 ea 03/14/23 [Rx] [facility] Medical History Alcohol use Ambulates with cane Anxiety Arthritis Back pain BiPAP (biphasic positive airway pressure) dependence Colon cancer screening Dietary restriction Flu vaccine need Health care maintenance Heartburn High cholesterol High triglycerides History of diverticulitis History of edema History of steroid therapy History of stress test Hyperlipidemia Hypertension Insulin dependent diabetes mellitus Left shoulder pain Loss of hearing Multiple sclerosis Neurogenic bladder Neuropathy Non-smoker Prostate disease Self-catheterizes urinary bladder Tinnitus Type 2 diabetes mellitus Wears glasses Surgical History History of colonoscopy History of rotator cuff surgery Family History Other Cancer Diabetes Heart disease Social History Smoking Status: Never smoker alcohol intake: current alcohol intake frequency: holidays/special occasions only substance use type: former substance user, marijuana and crack/cocaine what type of physical activity do you participate in: aerobics frequency: 3-4 times per week duration: 15-30 minutes/day HPI RIGHT KNEE Chief Complaint: right knee pain Details: This documentation accurately reflects the service provided and the decisions made by me, Dr. Jason Shah, DO 04/04/23 1035. Part of today?s visit was documented by [ ], acting as scribe. KAROL DRUMMOND is a 73 year old M here today for right knee pain. Pt. presents in a w/c and advises he fell at home on his right knee DOI 04-03-23 he was just coming into his doorway slipped and fell he is not sure if he hyperflexed but he did hit the knee was seen and Xrayed in [facility] ED which revealed no fracture but they believe he has a ruptured quad tendon. He is wearing a right knee immobilizer. He states he is unable to extend it and is painful to bend it. He is using a walker for ambulation with a knee immobilizer. Ortho Exam General General: Yes no acute distress Neurologic: Yes alert and Yes oriented x3 Psychologic: Yes reasonable and appropriate Right Knee Skin/Wound: No erythema, No ecchymosis and Yes swelling Quad Atrophy: No Patella Translation: 1 KNEE: Tenderness most specific superior and lateral to the patella as well as directly anterior to the patella, no joint effusion however there does appear to be a defect in the quadriceps tendon insertion He does not have an intact extensor mechanism is able to plantarflex and dorsiflex the ankle there is swelling in the right lower extremity there is no open wounds. There is no collateral instability Left Knee Patella Translation: 1 Supplemental Info 04/03/2023 x-ray right knee: Mild joint space narrowing medial compartment, lateral patellar tracking. Coding Level of Care Code Off vis,est,level 4 Diagnoses Rupture of right quadriceps tendon, initial encounter S76.111A Encounter type: initial encounter Laterality: right Assessment and Plan Assessment and Plan (1) Quadriceps tendon rupture: Status: Acute Qualifiers: Encounter type: initial encounter Laterality: right Qualified Code(s): S76.111A - Strain of right quadriceps muscle, fascia and tendon, initial encounter Orders: Orders Lower Ext Joint Only (Routine) Today S76.119A - Strain of unspecified quadriceps muscle, fascia and tendon, initial encounter Plan Patient has an apparent quadriceps tendon rupture of the right knee he has no intact extensor mechanism there is a palpable defect. Would like to obtain stat MRI to evaluate the extent of the injury and rule out fracture before proceeding surgically with quadriceps tendon repair. Instructed not to take any NSAIDs he may take Tylenol he does not need anything further for pain but it was offered. He should continue to use the knee immobilizer during attempted ambulation he may remove it when not ambulating and may bend the knee for comfort. We did discuss that he will likely need surgery for this we will plan to do this likely Sunday. 04/04/23 1328 <Electronically signed by Jason Shah DO> Date Jason Shah DO Cosigner Signature: Date (if applicable) CC: ~ I have examined the patient and the H&P has been reviewed. There are no clinical changes since date of exam. MRI reviewed does have full-thickness quadriceps tendon rupture so has subtle posterior medial meniscus tear which we cannot really address at this time we will proceed with quadriceps tendon repair open risk-benefit alternatives of the procedure were reviewed with the patient including risk of bleeding infection nerve artery tissue damage need for further surgery postoperative stiffness expected postoperative course postoperative restrictions with bracing to allow the construct to heal he is going to need to be ambulating with the knee in full extension. He cannot bend the knee immediately postop until instructed to do so.
--- NOTE | 2023-04-06 13:59 | OP.PCM_ITS ---
Operative Report Date of Procedure: 04/06/23 Preoperative diagnosis: Right quadriceps tendon rupture Postoperative diagnosis: Same Procedure: Open quadriceps tendon repair Implants: Arthrex 4.75 swivel lock x 2 with fiber tape Anesthesia: General plus postoperative femoral nerve block EBL: 15 Complications: None Condition: Stable to PACU Tourniquet time 45 minutes 300mmhg Indication for procedure: 73-year-old male patient had a ground-level fall injuring his right knee had palpable defect of his quadriceps tendon had MRI antony dence of full-thickness quadriceps tendon rupture, thoroughly discussed operative and nonoperative intervention patient had extensor mechanism disruption. risk benefits and alternatives were reviewed including risk of bleeding infection nerve, artery, bone, tissue damage, blood clot need for further surgery and continued pain postoperative restrictions expected postoperative course, stiffness Procedure: Patient was met in the preoperative holding area once again the operative extremity was identified by both patient and physician and was marked. Patient met by anesthesia and an IV was started patient was transferred to the operating room and a wheeled cart transfer the operative table in supine position anesthesia was started well-padded tourniquet was placed on the operative extremity patient was prepped and draped in the usual sterile fashion and a timeout was called ensure the proper patient procedure and extremity were being contemplated. An Esmarch was used to examine at the extremity and the tourniquet was inflated to 300 mmHg. A 10 blade scalpel was used to make a midline incision down through the skin and subcutaneous tissues full-thickness subcutaneous flaps were elevated medial and lateral joint capsule. The rupture was obvious the footprint on the patella was cleaned up with a rongeur. Fiber tape was then passed in Krak?w fashion up and down the quadriceps tendon this was repeated for a second fiber tape bleeding for free ends of FiberTape at the distal extent of the quadriceps tendon we then drilled and tapped the patella to receive to 4.75 bio composite swivel locks 2 tails were attached to each anchor and were secured to the patella the extra FiberWire that was present within the anchor was used then to perform additional fixation medial and lateral. We then used additional FiberWire with its to aid in the repair and then we used #1 Vicryl [id number] to close the most medial and lateral extent of the retinaculum prior to repair the knee was thoroughly irrigated with irrigation this was repeated after the repair was completed. We then closed the subcutaneous tissues with 2-0 Vicryl followed by tricia in the skin we placed a Mepilex Ag dressing thigh-high MUNIRA hose and a T ROM Newhope brace over top he is locked in full extension until seen in the office. Must wear the brace when ambulating. All counts were correct there is no intraoperative complications patient was brought back to the PACU in stable condition
--- NOTE | 2023-04-06 14:10 | EX.PCM.DISCH ---
Discharge Instructions Diet Discharge Diet: 2000 Calorie Control Diet (A high sugar diet around the time of surgery can cause increased risk of infection) Dressing / Incision Call your doctor if you observe: Shortness of breath and Chest pain Remove Dressing in: 5 days Additional Dressing/Incision Instructions:: Strict ice and elevation 14 days when not ambulating. Must have a knee brace on and locked in full extension during any attempted ambulation. May remove brace to shower. May bear weight on the leg as long as knee is in full extension. Leave dressing undisturbed and dry for 5 days postop then may remove dressing and wash incisional area with warm water and antibacterial soap DAILY either in or out of the shower after this point, however do not submerge in tub, pool. Encourage straight leg raise exercises, do not bend the knee, do not take other pain medication without discussing with physician. Okay to take [id number] Tylenol 1000 mg 4 times a day (prescription provided ). Minimize narcotic med pain medication as can be addictive constipating and sedating. Call with any questions or concerns, follow-up in the office 2 weeks or sooner if needed. Follow Up Care Please Follow Up With: Jason Shah DO When: 2 weeks Test Results: Test results from this visit will be discussed in further detail at your follow-up appointment, if applicable. Discharge Plan Admission Primary Reason for Your Visit: Right quadriceps tendon repair Attending Provider: Jason Shah Primary Care Provider: Guy Murrieta Discharge Orders/Prescriptions Prescriptions: New cephalexin [cephalexin] 500 mg capsule 1,000 mg PO Q8 Qty: 4 0RF Rx Instructions: take 2 tabs at 10:00 pm and 2 tabs after 5 am when you wake up Eliquis 2.5 mg tablet 2.5 mg PO BID Qty: 28 0RF Rx Instructions: Begin morning after surgery oxycodone 5 mg tablet 5 - 10 mg PO Q4H PRN (Reason: pain) 7 Days Qty: 60 0RF acetaminophen [acetaminophen] 500 mg tablet 1,000 mg PO Q6H PRN Qty: 100 0RF Continued naltrexone 4.5 mg PO QHS Rx Instructions: 4.5 oxybutynin chloride 15 mg tablet extended release 24hr 15 mg PO DAILY PreserVision AREDS [id number] capsule 1 cap PO DAILY modafinil 100 mg tablet 100 mg PO DAILY PRN (Reason: BP) alpha lipoic acid 600 mg tablet 1,200 mg PO DAILY insulin glargine [Basaglar KwikPen U-100 Insulin] 100 unit/mL (3 mL) insulin pen 44 unit subcut QPM 90 Days Qty: 39.6 3RF (DME) Edison Choice Comfort EZ insulin pen needles 31G pen injector See Rx Instructions .Route .MEDSUPPLY Qty: 100 0RF Rx Instructions: Check blood glucose twice a day and as needed Trulicity 3 mg/0.5 mL pen injector 3 mg subcut QWEEK 90 Days Qty: 6.5 3RF atorvastatin 40 mg tablet 40 mg PO QHS Qty: 90 2RF gabapentin 600 mg tablet 600 mg PO QHS Qty: 90 1RF Farxiga 10 mg tablet 10 mg PO DAILY Qty: 90 3RF lisinopril-hydrochlorothiazide 10-12.5 mg tablet 1 tab PO DAILY Qty: 90 1RF cholecalciferol (vitamin D3) 1,250 mcg (50,000 unit) capsule 1,250 mcg PO MO Qty: 14 2RF (DME) OneTouch Ultra Test Strip See Rx Instructions .Route Qty: 100 3RF Rx Instructions: Check blood sugar twice a day and as needed. Referrals / Follow Up: Guy Murrieta MD [Primary Care Provider] - Disposition Disposition (needs filled in before D/C Order can be placed): Home, Self Care
[2023-04-06 14:55] LABS: Bedside Glucose 121 mg/dL (74-106)
== END 2023-04-06 17:31 | disposition home or self-care (01) ==
LOC: SDC 10:41 → AC 10:43
PROVIDERS: PCP Internal Medicine; Referring Provider Orthopaedic Surgery; Visit Provider Orthopaedic Surgery
PROC: (CPT 27385; principal; 2023-04-06 12:15)
DX: S76.111A Strain of right quadriceps muscle, fascia and tendon, initial encounter (principal); G35 Multiple sclerosis; E11.40 Type 2 diabetes mellitus with diabetic neuropathy, unspecified; Z79.4 Long term (current) use of insulin; E78.00 Pure hypercholesterolemia, unspecified; N31.9 Neuromuscular dysfunction of bladder, unspecified; I10 Essential (primary) hypertension; Z79.899 Other long term (current) drug therapy; Z87.891 Personal history of nicotine dependence; W19.XXXA Unspecified fall, initial encounter
CPT/HCPCS: 27385; 64447; 01250; 82962; 97162; J7120; J2405

== ENCOUNTER 2023-07-13 13:30 | Outpatient (RCR) | payer MEDICARE, SELFPAY ==
--- NOTE | 2023-05-23 10:15 | HP.PTEVAL_ITS ---
Patient's Visit Information Visit Information Visit Information: KAROL DRUMMOND is a 73 year old M referred to Physical Therapy by Dr. Jason Shah DO with a diagnosis of R quad tendon repair. Date of Evaluation: 05/22/23 Physical Therapist: Christopher Leiva DPT Visit Plan Frequency: 2x /Week Duration: 4 Weeks Plan: 1) Gentle STM to R quad and scar 2) Weight shifting + pre-gait activity to build confidence in R quad/knee during stance phase 3) Hip/quad strengthening (QUAD SET, TKE, SLR, hip flexion/ABD/ext, heel slides seated or supine and progress to standing with low step ups) 4) Gait training (progress to cane) (HEP: seated HS stretch, standing RLE march/hip flexion, quad set) Pt currently using FWW and does not trust RLE, often has feelings of knee giving out. Surgeon not wanting a lot of [place] ext or squats until later in rehab. Pt has hx of MS. SLR has a large ext lag, improve quad strength before progressing or use strap to assist motion. Subjective Subjective: Pt presents to PT s/p R quad tendon repair on 04/06/23. Wearing knee brace to avoid full ROM when walking, using FWW and would like to get back to using a cane. Pt denies any pain and fatigue, but feels like he doesn't trust it. Doing exercises at home: SLR, standing HR, supine heel slides, seated marches, seated hip ABD 1 or 2x per day. Pt has stairs to get into trailer, has some difficulty lifting leg to get into shower. Pt able to stand for 5 minutes before needing to sit down, if holding onto something able to stand 10min. Hx of MS, gets tired often. Pt. is retired at this point in time. He reports not being very active at home with exercises, but tends to stay at home. Pain R knee: Pain Intensity (Out of 10): 0 Pain Intensity Range: 0 and 1 Objective Objective: MMT: able to perform R quad set, 40 deg ext lag with SLR, marked quad weakness ROM: increased HS tightness on RLE GAIT: antalgic with step-to pattern, heavy UE support during RLE stance phase, forward flexed trunk, wearing knee brace to avoid hyperflexion EDEMA: R mid-patellar 15.5in, 3 below tib tub 16.0 in, compression from brace helps pt educated to elevate LEs throughout day NEURO: pt has hx of MS, issues with peripheral neuropathy, occasional clonus and tone in LEs OBSERVATIONS: friction wound on ant ankle, has been addressed by optical effects camera operator and pt changes dressing every other day Balance/Special Test Scores Lower Extremity Functional Score: 26 Goals Goal 1:: STG: Pt will demonstrate equal weight shifting (A/P and lateral) without feelings of knee giving out Goal Time Frame: 2 Weeks Goal 2:: STG: Pt will demonstrate good quad set without compensation as seen in SLR x10 without extensor lag. Goal Time Frame: 2 Weeks Goal 3:: LTG: Pt will be able to amb. 300+ with SPC and normalized gait pattern and good RLE stability. Goal Time Frame: 4-6 Weeks Goal 4:: LTG: Pt will perform 5xSTS in 15s to demonstrate increased quad control and LE strength Goal Time Frame: 4-6 Weeks Rehabilitation Potential Physical Therapy Diagnosis: Pt presents with R quad weakness and gait deficits secondary to R quad tendon repair. (DOS 04/06/23) Pt would benefit from PT services to address functional RLE strength to improve balance when walking, navigating steps, and squatting to pick objects up off the floor. Rehabilitation Potential: Good Anticipated Interventions Patient/Client Instruction: Educate patient on: Plan of Care For the Purpose of:: To improve ability to perform ADL's, To increase tolerance to activity/condition/position, To improve performance and independence with ADL's, To decrease level of supervision to perform tasks, To improve ability of physical actions for home/community/work/leisure, To improve gait and locomotor functions, To decrease soft tissue restriction, To increase flexibility/ROM, To improve endurance, To improve balance, To improve safety with gait, To assume or resume ADL's, To improve safety, To improve health and function, To improve ability to perform tasks related to life management and To improve tolerance to ADL's Therapeutic Exercise to Include: Strength training, Endurance training, Flexibilty training, Gait and locomotor training and Active ROM For the Purpose of:: To improve muscle performance and motor function, To improve ability to perform ADL's, To increase tolerance to activity/condition /position, To improve performance and independence with ADL's, To decrease level of supervision to perform tasks, To improve ability of physical actions for home/community/work/leisure, To improve gait and locomotor functions, To improve health of tissue, To decrease soft tissue restriction, To improve endurance, To improve balance, To improve safety with gait, To assume or resume ADL's, To improve safety, To improve self management, To improve ability to perform tasks related to life management and To improve tolerance to ADL's Manual Therapy Techniques to Include: Scar massage and Soft tissue mobilization For the Purpose of:: To improve nutrient delivery to tissue, To increase oxygenation perfusion, To improve health of tissue and To decrease soft tissue restriction Assistive Devices: Cane For the Purpose of:: To improve balance, To improve safety with gait, To improve safety, To improve ability to perform tasks related to life management and To improve tolerance to ADL's Functional electric stimulation: Yes Cryotherapy (ice pack, ice massage): Yes Thermo therapy (hot pack): Yes Vasopneumatic device: Yes For the Purpose of:: To decrease pain, To improve muscle performance and motor function and To improve health of tissue Text: Thank you for the opportunity to evaluate your patient. For Medicare and Medicare HMO plans, please review the plan of care and approve it. It will need to be FAXED BACK to us at [phone] for Medicare purposes. For Medicare only, by signing this I certify the plan of care. Please let me know if there are questions or concerns regarding this plan of care. Physician Signature: Date:
--- NOTE | 2023-06-15 15:01 | HP.PTREVAL ---
Re-Evaluation Intro: Dr. Jason Shah, DO, It has been my pleasure to treat KAROL DRUMMOND over the last 7 visits for R quad tendon repair. Please see the progress note below for an update on the physical therapy plan of care! Subjective Subjective: Seen Dr happy with with progress Objective Objective/Function: * Patient will cont to benefit from skilled PT with intervetions due to weakness extensor mechanism of quad and needing FWW for community gait ,overall progressing towards goals* MMT: ( peak force) quads 21.6( mid range) ,hamstrings 34.3 ,hip flexion 21.8 SLR: poor extension lag unable to perform SLR ROM: MIN HS tightness on RLE AROM: 10-130 DEGREES GAIT: Ambualted with reciprocal pattern slight decrease stance time right side with brace EDEMA: NT NEURO: pt has hx of MS, issues with peripheral neuropathy in legs Plan Plan Plan: 1) Gentle STM to R quad and scar 2) Weight shifting + pre-gait activity to build confidence in R quad/knee during stance phase 3) Hip/quad strengthening (QUAD SET, TKE, SLR, hip flexion/ABD/ext, heel slides seated or supine and progress to standing with low step ups) 4) Gait training (progress to cane) (HEP: seated HS stretch, standing RLE march/hip flexion, quad set) Pt currently using FWW and does not trust RLE, often has feelings of knee giving out. Surgeon not wanting a lot of [place] ext or squats until later in rehab. Pt has hx of MS. SLR has a large ext lag, improve quad strength before progressing or use strap to assist motion. Balance/Gait/Functional tests Balance/Special Test Scores Lower Extremity Functional Score: 26 Goals Goals Goal 1:: STG: Pt will demonstrate equal weight shifting (A/P and lateral) without feelings of knee giving out Goal Time Frame: 2 Weeks Goal Progress: Progressing Goal 2:: STG: Pt will demonstrate good quad set without compensation as seen in SLR x10 without extensor lag. Goal Time Frame: 2 Weeks Goal Progress: Progressing Goal 3:: LTG: Pt will be able to amb. 300+ with SPC and normalized gait pattern and good RLE stability. Goal Time Frame: 4-6 Weeks Goal Progress: Progressing Goal 4:: LTG: Pt will perform 5xSTS in 15s to demonstrate increased quad control and LE strength Goal Time Frame: 4-6 Weeks Goal Progress: Progressing Anticipated Interventions Anticipated Interventions Patient/Client Instruction: Educate patient on: Plan of Care For the Purpose of:: To improve ability to perform ADL's, To increase tolerance to activity/condition/position, To improve performance and independence with ADL's, To decrease level of supervision to perform tasks, To improve ability of physical actions for home/community/work/leisure, To improve gait and locomotor functions, To decrease soft tissue restriction, To increase flexibility/ROM, To improve endurance, To improve balance, To improve safety with gait, To assume or resume ADL's, To improve safety, To improve health and function, To improve ability to perform tasks related to life management and To improve tolerance to ADL's Therapeutic Exercise to Include: Strength training, Endurance training, Flexibilty training, Gait and locomotor training and Active ROM For the Purpose of:: To improve muscle performance and motor function, To improve ability to perform ADL's, To increase tolerance to activity/condition/position, To improve performance and independence with ADL's, To decrease level of supervision to perform tasks, To improve ability of physical actions for home/community/work/leisure, To improve gait and locomotor functions, To improve health of tissue, To decrease soft tissue restriction, To improve endurance, To improve balance, To improve safety with gait, To assume or resume ADL's, To improve safety, To improve self management, To improve ability to perform tasks related to life management and To improve tolerance to ADL's Manual Therapy Techniques to Include: Scar massage and Soft tissue mobilization For the Purpose of:: To improve nutrient delivery to tissue, To increase oxygenation perfusion, To improve health of tissue and To decrease soft tissue restriction Assistive Devices: Cane For the Purpose of:: To improve balance, To improve safety with gait, To improve safety, To improve ability to perform tasks related to life management and To improve tolerance to ADL's Functional electric stimulation: Yes Cryotherapy (ice pack, ice massage): Yes Thermo therapy (hot pack): Yes Vasopneumatic device: Yes For the Purpose of:: To decrease pain, To improve muscle performance and motor function and To improve health of tissue Re-Evaluation Ending Re-evaluation ending: Please do not hesitate to contact me at [phone] by phone or if you have questions or concerns regarding this new plan of care! Sincerely, Drew Gonzalez, PT, Cert MDT, OCS
--- NOTE | 2023-07-16 09:30 | HP.PTREVAL_ITS ---
Re-Evaluation Intro: Dr. Jason Shah, DO, It has been my pleasure to treat KAROL DRUMMOND over the last 15 visits for R quad tendon repair. Please see the progress note below for an update on the physical therapy plan of care! Subjective Subjective: Pt reports an overall improvement in LE strength, the knee does not give out on him anymore and he only wore the brace once this week. Has been using cane and walker as needed. Pt reports a fall that happened a few weeks ago, denies hitting his head and no injuries, but still feels fairly unstable overall. Objective Objective/Function: MMT: L - hip flex (seated) 4/5, knee ext 4+/5, knee flex 4- /5, DF 4+/5, PF 4+/5 R - hip flex (seated) 3+/5, knee ext 4/5, knee flex 4-/5, DF 4+/5, PF 4+/5, seated naomy hip ABD 4-/5 GAIT: pt has better step-through pattern with FWW, able to use cane on either side (better pattern when used on L, but felt more stable on R), pt has limitations in LLE d/t MS and RLE d/t quad involvement. Only one instance of R knee giving out slightly. Pt still very limited by strength and fatigue, exacerbated by MS symptoms. Pt heavily educated on need to establish consistent exercise and walking program to increase functional and muscular endurance. STS: able to perform without UE SLR: Harder to do than pt expected, will continue to work on at home, still has approx 5-10 deg ext lag 5xSTS: 12.39s with no UE Pt still appropriate to continue therapy, working on gait mechanics, balance, and overall LE strength to improve safety and reduce risk for fall, but if pt feels he is happy with his progress and willing to continue HEP consistently at home, then can consider d/c. Plan Plan Plan: Pt to return in 4 weeks to re-assess how indep HEP has been going. Can either d/c or schedule more visits depending on how pt is feeling HEP: SLR, LAQ, step up, STS, TKE, standing march Balance/Gait/Functional tests Balance/Special Test Scores Lower Extremity Functional Score: 26 Goals Goals Goal 1:: STG: Pt will demonstrate equal weight shifting (A/P and lateral) without feelings of knee giving out Goal Time Frame: 2 Weeks Goal Progress: Goal Met Goal 2:: STG: Pt will demonstrate good quad set without compensation as seen in SLR x10 without extensor lag. Goal Time Frame: 2 Weeks Goal Progress: Progressing Goal 3:: LTG: Pt will be able to amb. 300+ with SPC and normalized gait pattern and good RLE stability. Goal Time Frame: 4-6 Weeks Goal Progress: Progressing Goal 4:: LTG: Pt will perform 5xSTS in 15s to demonstrate increased quad control and LE strength Goal Time Frame: 4-6 Weeks Goal Progress: Progressing Anticipated Interventions Anticipated Interventions Patient/Client Instruction: Educate patient on: Plan of Care For the Purpose of:: To improve ability to perform ADL's, To increase tolerance to activity/condition/position, To improve performance and independence with ADL's, To decrease level of supervision to perform tasks, To improve ability of physical actions for home/community/work/leisure, To improve gait and locomotor functions, To decrease soft tissue restriction, To increase flexibility/ROM, To improve endurance, To improve balance, To improve safety with gait, To assume or resume ADL's, To improve safety, To improve health and function, To improve ability to perform tasks related to life management and To improve tolerance to ADL's Therapeutic Exercise to Include: Strength training, Endurance training, Flexibilty training, Gait and locomotor training and Active ROM For the Purpose of:: To improve muscle performance and motor function, To impro ve ability to perform ADL's, To increase tolerance to activity/condition/position, To improve performance and independence with ADL's, To decrease level of supervision to perform tasks, To improve ability of physical actions for home/community/work/leisure, To improve gait and locomotor functions, To improve health of tissue, To decrease soft tissue restriction, To improve endurance, To improve balance, To improve safety with gait, To assume or resume ADL's, To improve safety, To improve self management, To improve ability to perform tasks related to life management and To improve tolerance to ADL's Manual Therapy Techniques to Include: Scar massage and Soft tissue mobilization For the Purpose of:: To improve nutrient delivery to tissue, To increase oxygenation perfusion, To improve health of tissue and To decrease soft tissue restriction Assistive Devices: Cane For the Purpose of:: To improve balance, To improve safety with gait, To improve safety, To improve ability to perform tasks related to life management and To improve tolerance to ADL's Functional electric stimulation: Yes Cryotherapy (ice pack, ice massage): Yes Thermo therapy (hot pack): Yes Vasopneumatic device: Yes For the Purpose of:: To decrease pain, To improve muscle performance and motor function and To improve health of tissue Re-Evaluation Ending Re-evaluation ending: Please do not hesitate to contact me at [phone] by phone or if you have questions or concerns regarding this new plan of care! Sincerely, STEVEN MedinaT
== END 2023-07-13 19:00 | disposition home or self-care (01) ==
LOC: PT 13:30
PROVIDERS: PCP Internal Medicine; Referring Provider Orthopaedic Surgery; Visit Provider Orthopaedic Surgery
DX: S76.111D Strain of right quadriceps muscle, fascia and tendon, subsequent encounter (principal); G89.18 Other acute postprocedural pain
CPT/HCPCS: 97110; 97162; 97530

== ENCOUNTER → 2023-11-21 | Outpatient (CLI) | payer MEDICARE, SELFPAY ==
[2023-11-21 16:41] LABS: Absolute Lymphocyte Count 1.75 X10^3/uL (0.83-4.51); Absolute Neutrophil Count 9.1 X10^3/uL (2.0-7.7); Basophil# 0.07 X10^3/uL; Basophil% 0.6 % (0-1); Eosinophil# 0.18 X10^3/uL; Eosinophils% 1.5 % (0-5); Hematocrit 44.3 % (40-54); Hemoglobin 15.1 g/dL (13.0-16.5); Lymphocyte # 1.75 X10^3/ul (0.83-4.51); Lymphocyte % 14.5 % (19-41); Mean Corp Hgb Conc 34.1 g/dL (32-36); Mean Corpuscular Hgb 30.9 pg (27.0-32.0); Mean Corpuscular Volume 90.8 fL (80-94); Monocyte# 0.93 X10^3/uL; Monocyte% 7.7 % (0-10); NRBC Flagged by Analyzer 0 % (0-5); Neutrophil # 9.11 X10^3/uL (2.7-7.7); Neutrophil % 75.3 % (47-70); Platelet Count 194 K/mm3 (150-450); RBC Distribution Width CV 12.8 % (11.6-14.6); RBC Distribution Width SD 42.3 fl (35.1-43.9); Red Blood Count 4.88 M/mm3 (4.6-6.2); White Blood Count 12.1 K/mm3 (4.4-11.0)
[2023-11-21 17:01] LABS: Vitamin B12 520 pg/mL (211-911)
[2023-11-21 17:08] LABS: ALB/GLOB Ratio 0.9 RATIO (0.9-2.4); AST(SGOT) 15 U/L (15-37); Alanine Aminotransfer ALT/SGPT 33 U/L (16-61); Albumin, Serum 3.6 g/dL (3.2-5.0); Alkaline Phosphatase 141 U/L (45-117); Anion Gap 6 (5-15); BUN 24 mg/dL (7-18); BUN/Creat Ratio 14.5 RATIO (10-20); Calcium,Total 9.3 mg/dL (8.5-10.1); Chloride 107 mmol/L (98-107); Creatinine, Serum 1.65 mg/dL (0.70-1.30); EST Glomerular Filtration Rate 43 mL/min (>60); Est Glom Filt Rate - Afr Amer 52 mL/min (>60); Globulin 3.9 g/dL (2.2-4.2); Glucose 127 mg/dL (74-106); Potassium 4.1 mmol/L (3.5-5.1); Protein, Total 7.5 g/dL (6.4-8.2); Sodium Level 139 mmol/L (136-145); T4 Free Direct 0.87 ng/dL (0.76-1.46); Thyroid Stim Hormone (TSH) 1.93 uIU/mL (0.358-3.74)
== END | disposition home or self-care (01) ==
PROVIDERS: PCP Internal Medicine; Referring Provider Internal Medicine; Visit Provider Internal Medicine
DX: E11.69 Type 2 diabetes mellitus with other specified complication (principal); G35 Multiple sclerosis; Z79.4 Long term (current) use of insulin; E55.9 Vitamin D deficiency, unspecified
CPT/HCPCS: 36415; 80053; 82306; 82607; 84439; 84443; 85025

== ENCOUNTER → 2024-02-14 | Outpatient (CLI) | payer MEDICARE, SELFPAY ==
[2024-02-14 16:46] LABS: PSA,Total - Annual Screen 1.79 ng/mL (0.00-4.00)
== END | disposition home or self-care (01) ==
LOC: LAB 14:50
PROVIDERS: PCP Internal Medicine; Referring Provider Urology; Visit Provider Urology
DX: Z12.5 Encounter for screening for malignant neoplasm of prostate (principal)
CPT/HCPCS: 36415; 84153; G0103

== ENCOUNTER → 2024-05-23 | Outpatient (CLI) | payer MEDICARE, SELFPAY ==
[2024-05-23 15:26] LABS: Absolute Lymphocyte Count 1.68 X10^3/uL (0.83-4.51); Absolute Neutrophil Count 8.1 X10^3/uL (2.0-7.7); Basophil# 0.05 X10^3/uL; Basophil% 0.5 % (0-1); Eosinophil# 0.12 X10^3/uL; Eosinophils% 1.1 % (0-5); Hematocrit 46.4 % (40-54); Hemoglobin 15.7 g/dL (13.0-16.5); Lymphocyte # 1.68 X10^3/ul (0.83-4.51); Lymphocyte % 15.6 % (19-41); Mean Corp Hgb Conc 33.8 g/dL (32-36); Mean Corpuscular Hgb 31.2 pg (27.0-32.0); Mean Corpuscular Volume 92.1 fL (80-94); Mean Platelet Vol. 9.1 fl (6.2-12.0); Monocyte# 0.75 X10^3/uL; NRBC Flagged by Analyzer 0 % (0-5); Neutrophil % 75.3 % (47-70); Platelet Count 214 K/mm3 (150-450); RBC Distribution Width CV 12.4 % (11.6-14.6); RBC Distribution Width SD 41.5 fl (35.1-43.9); Red Blood Count 5.04 M/mm3 (4.6-6.2); White Blood Count 10.8 K/mm3 (4.4-11.0)
[2024-05-23 15:51] LABS: Vitamin B12 605 pg/mL (211-911); Vitamin D,25 Hydroxy 81.9 ng/mL
[2024-05-23 16:03] LABS: ALB/GLOB Ratio 0.9 RATIO (0.9-2.4); AST(SGOT) 15 U/L (15-37); Alanine Aminotransfer ALT/SGPT 30 U/L (16-61); Albumin, Serum 3.7 g/dL (3.2-5.0); Alkaline Phosphatase 133 U/L (45-117); Anion Gap 6 (5-15); BUN 30 mg/dL (7-18); BUN/Creat Ratio 18.9 RATIO (10-20); Calcium,Total 10.5 mg/dL (8.5-10.1); Chloride 105 mmol/L (98-107); Cholesterol 167 mg/dL (200); Creatinine, Serum 1.59 mg/dL (0.70-1.30); EST Glomerular Filtration Rate 45 mL/min (>60); Est Glom Filt Rate - Afr Amer 55 mL/min (>60); Glucose 126 mg/dL (74-106); High Density Lipoprotein 48 mg/dL; Potassium 4.3 mmol/L (3.5-5.1); Protein, Total 7.7 g/dL (6.4-8.2); Sodium Level 138 mmol/L (136-145); Triglycerides 122 mg/dL; Very Low Density Lipoprotein 24 mg/dL (5-40)
== END | disposition home or self-care (01) ==
LOC: BIMLAB 14:16
PROVIDERS: PCP Internal Medicine; Referring Provider Internal Medicine; Visit Provider Internal Medicine
DX: G35 Multiple sclerosis (principal); E11.9 Type 2 diabetes mellitus without complications; I10 Essential (primary) hypertension; E78.5 Hyperlipidemia, unspecified; E55.9 Vitamin D deficiency, unspecified
CPT/HCPCS: 36415; 80053; 80061; 82306; 82607; 85025

== ENCOUNTER 2024-07-14 14:00 | Outpatient (RCR) | payer MEDICARE, SELFPAY ==
--- NOTE | 2024-05-28 16:04 | HP.PTEVAL ---
Patient's Visit Information Visit Information Visit Information: KAROL DRUMMOND is a 74 year old M referred to Physical Therapy by Dr. Guy Murrieta MD with a diagnosis of Unsteady gait. Date of Evaluation: 05/28/24 Physical Therapist: Viraj Landry, PT, ATC Visit Plan Frequency: 2x /Week Duration: 4-6 Weeks Plan: B LE strengthening, balance and proprio, gait training, transfer training, nustep, and HEP Subjective Subjective: Pt reports he was diagnosed with MS 20 years ago. Pt notes he has noticed mild progression with the disease. Pt reports he went to see his doctor the other day and was unable to get up on to her table. Pt reports his doctor immediately ordered him to go to PT where he could work on this gait and strengthening of his LE's. Pt reports he has neuropathy in Bilateral LE's which gives him a tingling sensation in his LE's. Pt notes he is able to feel his feet. Pt reports he lives by him self in a mobile home and has to negotiate 6 stairs to get into his house. Pt negotiates them one step at a time. Pt reports he does feel some weakness in his legs as he is unable to stand for a long period of time. Pt has had a couple of falls in the past. Pt notes he falls once about every 6 months. Pt reports he is not really in pain this date Objective Objective: Neuro: B LE sensation is WNL to light touch MMT: B LE is grossly rated at 4-/5 to 4/5 with MMT when compared bilaterally ROM: B LE's are WFL when compared bilaterally TU.46 sec Gait: Pt is able to ambulate 140 feet with WW until feeling like he needs to rest secondary to fatigue Stairs: Pt is able to negotiate 10 stairs, one step at a time, 2 handrails Balance/Special Test Scores Lower Extremity Functional Score: 32 Goals Goal 1:: Increase B LE strength x 1 grade to aid with stair negotiation Goal Time Frame: 4-6 Weeks Goal 2:: Perform TUG in under 15 sec Goal Time Frame: 4-6 Weeks Goal 3:: Negotiate 10 steps reciprocally with one hand rail to aid with I at home Goal Time Frame: 4-6 Weeks Goal 4:: I with HEP Goal Time Frame: 4-6 Weeks Rehabilitation Potential Physical Therapy Diagnosis: Pt has B LE weakness, unsteady gait, and difficulty with stair negotiation secondary to MS Rehabilitation Potential: Good Anticipated Interventions Patient/Client Instruction: Educate patient on: Condition and Plan of Care For the Purpose of:: To improve self management Therapeutic Exercise to Include: Strength training, Endurance training, Balance training, Gait and locomotor training and Dynamic Lumbar Stabilization For the Purpose of:: To improve muscle performance and motor function, To increase tolerance to activity/condition/position and To improve ability of physical actions for home/community/work/leisure Text: Thank you for the opportunity to evaluate your patient. For Medicare and Medicare HMO plans, please review the plan of care and approve it. It will need to be FAXED BACK to us at [phone] for Medicare purposes. For Medicare only, by signing this I certify the plan of care. Please let me know if there are questions or concerns regarding this plan of care. Physician Signature: Date:
--- NOTE | 2024-07-14 14:29 | HP.PTDCSUM ---
Discharge Summary D/C summary: It has been my pleasure to treat KAROL DRUMMOND referred by Dr. Guy Murrieta MD, with the diagnosis of Unsteady gait for a total of 8 visit(s). Discharge Date: Please see the following information for a summary of their discharge status. Subjective Subjective: Pt reports he stumbles sometimes, but he has not lost his balance Overall Improvement % Improvement: 60 Objective Objective/Function: TU.94 sec Stairs: Pt is able to negotiate 10 steps, but has to use 2 handrails and go one step at a time. MMT: R knee extension is 4-/5. All other measurements 5/5 throughout Pt is I with HEP Goals Goal 1:: Increase B LE strength x 1 grade to aid with stair negotiation Goal Progress: Progressing Goal 2:: Perform TUG in under 15 sec Goal Progress: Progressing Goal 3:: Negotiate 10 steps reciprocally with one hand rail to aid with I at home Goal Progress: Progressing Goal 4:: I with HEP Goal Progress: Goal Met Plan Plan: Discontinue to I gym routine D/C Information d/c sentence: If there are questions or concerns regarding this patient's physical therapy, please feel free to call me at [phone]. Thank you for the referral of this patient. Sincerely, Viraj Landry, PT, ATC Balance/Gait/Functional tests Balance/Special Test Scores Lower Extremity Functional Score: 40 Improvement % Improvement: 60
== END 2024-07-14 19:00 | disposition home or self-care (01) ==
LOC: PT 14:00
PROVIDERS: PCP Internal Medicine; Referring Provider Internal Medicine; Visit Provider Internal Medicine
DX: R26.89 Other abnormalities of gait and mobility (principal)
CPT/HCPCS: 97110; 97161; 97530

== ENCOUNTER → 2024-07-17 | Outpatient (CLI) | payer MEDICARE, SELFPAY ==
--- NOTE | 2024-07-17 06:43 | MRI_ITS ---
PROCEDURE: SPINE THORACIC W/WO CONTRAST 07/17/2024 REASON FOR EXAM: Multiple sclerosis TECHNIQUE: Multisequence multiplanar MR images of the thoracic spine were obtained before and after the administration of 20 mL of intravenous Clariscan. COMPARISON: None FINDINGS: Vertebral body heights are maintained. Negative for fracture or marrow replacement. Alignment is maintained. Multiple scattered hyperintense T2 lesions throughout the thoracic cord likely related to the history of multiple sclerosis. No pathologic cord enhancement. No focal disc herniation, significant spinal stenosis or foraminal narrowing. No paraspinal mass. Moderate paraspinal muscle atrophy. MRI/Spine Thoracic W/WO Contrast IMPRESSION: 1. Multiple scattered hyperintense T2 cord lesions most consistent with the his tory of multiple sclerosis. No pathologic enhancement. 2. No focal disc herniation, spinal stenosis or foraminal narrowing. Reading Location: [facility]
--- NOTE | 2024-07-17 06:43 | MRI_ITS ---
PROCEDURE: BRAIN W/WO CONTRAST 07/17/2024 REASON FOR EXAM: MS TECHNIQUE: Brain MRI without and with intravenous contrast with additional dedicated imaging of the IACs. CONTRAST: 20 cc IV Clariscan was administered. COMPARISON: None FINDINGS: Brain: Moderate cerebral atrophy and chronic periventricular white matter disease. No suspicious parenchymal or leptomeningeal enhancement. No suspicious intracranial mass. Diffusion weighted images: No evidence of restricted diffusion to, to suggest an acute infarct. Ventricles: Consistent with the overall degree of cerebral atrophy. Major Intracranial Vessels: Normal contrast opacification of the major intracranial vessels. Sinuses: Mild paranasal sinus mucosal thickening. Mastoids: Mastoid air cells are clear. MRI/Brain W/WO Contrast IMPRESSION: 1. No acute intracranial abnormality; no acute infarct, intracranial hemorrhage or extra-axial collection. 2. Chronic microvascular ischemia and involutional changes. 3. No suspicious intracranial mass, abnormal parenchymal or leptomeningeal enha ncement. Reading Location: [facility]
--- NOTE | 2024-07-17 06:43 | MRI_ITS ---
PROCEDURE: SPINE CERVICAL W/WO CONTRAST 07/17/2024 REASON FOR EXAM: MS TECHNIQUE: Cervical spine MRI without and with intravenous gadolinium-based contrast. CONTRAST: Clariscan VOLUME: 20 mL Gauge IV FINDINGS: The vertebral body heights and alignment are maintained. No evidence of compression fracture. The bone marrow signal is unremarkable. Cervicomedullary junction is unremarkable. Cervical cord is normal in caliber and signal intensity. No abnormal cord signal, parenchymal or leptomeningeal enhancement. Prevertebral soft tissues are unremarkable Disc Spaces: C2-3: No significant disc contour abnormality. No significant spinal canal stenosis or foraminal stenosis. C3-4: Mild uncinate hypertrophy and facet degenerative changes. No significant canal stenosis. Mild bilateral neural foraminal narrowing.. C4-5: Yyxc-[id number]-[id number]-right uncinate hypertrophy and mild facet degenerative changes. No canal stenosis. Mild bilateral neural foraminal narrowing.. C5-6: No significant disc contour abnormality. No significant spinal canal stenosis or foraminal stenosis. C6-7: No significant disc contour abnormality. No significant spinal canal stenosis or foraminal stenosis. C7-T1: No significant disc contour abnormality. No significant spinal canal stenosis or foraminal stenosis. MRI/Spine Cervical W/WO Contrast IMPRESSION: No suspicious cord signal abnormality, parenchymal or leptomeningeal enhancemen t. Scattered degenerative changes without high-grade canal stenosis or neural fora jesus narrowing. Reading [facility]
== END | disposition home or self-care (01) ==
LOC: MRI 06:15
PROVIDERS: PCP Internal Medicine; Referring Provider Psychiatry & Neurology Neurology; Visit Provider Psychiatry & Neurology Neurology
DX: G35 Multiple sclerosis (principal)
CPT/HCPCS: 70553; 72156; 72157; A9575

== ENCOUNTER → 2024-11-19 | Outpatient (CLI) | payer MEDICARE, SELFPAY ==
[2024-11-19 15:57] LABS: Anion Gap 13 (5-15); BUN 23 mg/dL (4-19); BUN/Creat Ratio 15.0 RATIO (10-20); Calcium,Total 10.8 mg/dL (7.6-11.0); Carbon Dioxide 23.4 mmol/L (21.0-32.0); Chloride 105 mmol/L (98-108); Glucose 151 mg/dL (70-99); Potassium 4.6 mmol/L (3.3-5.1)
== END | disposition home or self-care (01) ==
LOC: BIMLAB 13:54
PROVIDERS: PCP Internal Medicine; Referring Provider Internal Medicine; Visit Provider Internal Medicine
DX: E11.69 Type 2 diabetes mellitus with other specified complication (principal); Z79.4 Long term (current) use of insulin
CPT/HCPCS: 36415; 80048

== ENCOUNTER → 2025-02-16 | Outpatient (CLI) | payer MEDICARE, SELFPAY ==
[2025-02-16 17:39] LABS: PSA,Total - Annual Screen 1.24 ng/mL (0.02-4.00)
== END | disposition home or self-care (01) ==
LOC: LAB 14:26
PROVIDERS: PCP Internal Medicine; Referring Provider Urology; Visit Provider Urology
DX: Z12.5 Encounter for screening for malignant neoplasm of prostate (principal)
CPT/HCPCS: 36415; 84153; G0103